=== PATIENT | male | born 1950 | race African-American/Black ===

== ENCOUNTER 2018-05-21 05:27 | Day surgery (SDC) | payer OTHER ==
[~2018-05-21] VITALS: Ht 182.9 cm; Wt 73.6 kg
--- NOTE | ~2018-05-21 | PATH ---
[facility] [address] [place] [address] PATHOLOGY RPT PROCEDURE Name: FERMÍN FRANK Room #: DEP [facility]..#: [id number] Admission: 05/21/18 Date of : 52 Discharge: 05/21/18 Report #: [id number] Path Case #: [id number] [facility] Accession Number: [id number] . 01 Material submitted: . CORD LIPOMA . 02 Diagnosis: Fibroadipose tissue "cord lipoma": - Mature lobulated fibroadipose tissue consistent with a lipoma. - Three minute lymphoid aggregates with reactive changes. (SHA:pit 05/25/2018) QTP/05/25/2018 . 02 Electronically signed: . Roddy Montes MD, Pathologist NPI- [id number] . 01 Gross description: . The specimen is received in formalin, labeled "Fermín Frank, cord lipoma", is an elongated yellow soft tissue covered by a bridges-white membrane measuring 7.0 x 2.0 x 1.5 cm. The specimen is serially sectioned to show a yellow homogeneous cut surface with no discrete hemorrhage or necrosis. [employer] Cle[employer] tissue is submitted in A1-A3. (A1 = section with black ink = resection margin) (SWS; 05/22/2018) SHS/SHS . 02 Pathologist provided ICD-10: D17.6 . 02 CPT . 266425 Specimen Comment: A courtesy copy of this report has been sent to Specimen Comment: [phone], . Specimen Comment: Report sent to / DR SNOW Performed at: [address], [place] [id number] MD Caden Up MD Phone: [phone] Performed at: [address] [id number] MD Brooke Thornton MD Phone: [phone]
--- NOTE | ~2018-05-21 | O ---
[facility] [place] [address] OPERATIVE REPORT Name: SANDOVALFERMÍN Room #: DEP [facility]#: [id number] Admission: 05/21/18 Attend Phys: Fermín Graham MD Discharge: 05/21/18 Date of : 52 Report #: [id number] THIS REPORT FOR: //name// CC: Capo Graham DATE OF SERVICE: 05/21/[address] Fermín Graham and Dr. Capo Longoria. PREOPERATIVE DIAGNOSIS: Left inguinal hernia. POSTOPERATIVE DIAGNOSIS: Left inguinal hernia with a left cord lipoma. PROCEDURE: Left inguinal hernia repair with Prolene hernia system mesh and excision of a left cord lipoma. SURGEON: Fermín Graham MD ANESTHESIA: Local IV sedation. DESCRIPTION OF PROCEDURE: The patient was brought to the operating room and placed on operative table in the supine position. Sequential compression devices were in place for DVT prophylaxis. There was no indication for preoperative antibiotics. The patient underwent IV sedation. The left inguinal area was prepped and draped in a sterile fashion. Skin and subcutaneous tissue were then infiltrated with 0.5% Marcaine and 1% Xylocaine in a 1:1 mixture. Left inguinal skin incision was then performed using #10 scalpel blade. Hemostasis obtained using electrocautery. Further hemostasis was obtained with clamps and 2-0 chromic ties. Dissection was carried down through subcutaneous tissue, the external oblique fascia, which was then incised with a knife and opened with the Metzenbaum scissors. The ilioinguinal nerve was identified, dissected free, injected with a local mixture and preserved. The cord was then elevated and held into place with a Lluvia drain. Cremasteric muscle fibers were then split in the direction of the fibers using clamp and electrocautery. A cord lipoma was identified, dissected free, clamped, excised and tied with a 2-0 chromic tie. An indirect inguinal hernia sac was identified, dissected free and reduced back through the internal ring. The preperitoneal space was then developed using blunt dissection. An extended Prolene hernia system mesh was then inserted through the internal ring and the underlay patch was then deployed in the preperitoneal space. Connector was left in the internal ring and the overlay patch was then deployed into the inguinal canal. The mesh was secured to the pubic tubercle superiorly at the connector using simple interrupted 2-0 Vicryl sutures. The mesh was split, wrapped around the cord, secured to the inguinal ligament with simple interrupted 2-0 Vicryl suture. The [place] and [address] [address] OPERATIVE REPORT Name: FERMÍN SANDOVAL [id number] Admission: 05/21/18 Attend Phys: Fermín Graham MD Discharge: 05/21/18 Date of : 52 Report #: [id number] ilioinguinal nerve were then returned to the canal intact. The external oblique fascia was then closed using running 2-0 Vicryl suture. Twin's fascia was then reapproximated using 3 simple interrupted 2-0 chromic sutures and the skin then closed with a running 4-0 subcuticular Vicryl stitch. Wound was then dressed with Mastisol, 1/2-inch Steri-Strips cut in half, Telfa, 4 x 4 gauze, sponge and tape. The patient was then awakened from the IV sedation, taken to recovery room in good condition. Estimated blood loss was approximately 5 mL and the patient tolerated the procedure well. All sponge, lap and instrument counts correct x 2. <ELECTRONICALLY SIGNED> By: Fermín Graham MD 05/22/18 1535 [id number] 1604 Fermín Graham MD /nt
[~2018-05-21 05:27] MED LIST: FIBER500 MG PO; FLOMAX PO; IBUPROFEN 800800 M1 PO; NOHOMEMEDICATIONS; NORCO 5-325 TA1 EACH PO; VITAMIN B-121000 MC3 PO; VITAMIN C500 M1 PO; VITAMIN D2000 UNIT PO; ZOFRAN4 MG PO
[2018-05-21 13:04] VITALS: BP 109/70
[2018-05-21] MEDS ORDERED: NORCO 5-325 TA1 EACH PO (13:50)
[2018-05-21 15:21] VITALS: BP 109/70
== END 2018-05-21 15:50 | disposition home or self-care (01) ==
LOC: OR 05:27 → TBA 05:29 → OR 06:40
DX: K40.90 Unilateral inguinal hernia, without obstruction or gangrene, not specified as recurrent (principal); D17.6 Benign lipomatous neoplasm of spermatic cord; Z87.442 Personal history of urinary calculi; Z98.890 Other specified postprocedural states; Z85.46 Personal history of malignant neoplasm of prostate; Z79.891 Long term (current) use of opiate analgesic
CPT/HCPCS: 50010; 50101; 50386; 50417; 54111; 56524; 56526; 56528; 62110; 62900; 70005